=== PATIENT | male | born 1990 | race Two or more races ===

== ENCOUNTER 2017-05-25 01:53 | Emergency (ER) | payer BC ==
[~2017-05-25] VITALS: Ht 182.9 cm; Wt 117.9 kg
--- NOTE | 2017-05-25 02:40 | NUR ---
DR MCNAMARA AT BEDSIDE FOR EVAL.
--- NOTE | 2017-05-25 03:05 | NUR ---
ID DONE BY DR. MCNAMARA. PATIENT TOLERATED WELL. 4X4 DRESSING APPLIED AND SECURED WITH TAPE. Addendum: 05/25/17 at 0306 by [id number] I&D DONE BY .
[2017-05-25 03:25] VITALS: BP 118/78
--- NOTE | 2017-05-25 03:25 | NUR ---
Patient discharged to home in stable conditon. Written and verbal after care instructions given. Patient verbalizes understanding of instructions. INSTRUCTED TO CHANGE DRESSING FREQUENTLY, AND TO WASH WITH SOAP AND WATER AFTER BOWEL MOVEMENT, VERBALIZED UNDERSTANDING.
== END 2017-05-25 03:26 | disposition home or self-care (01) ==
LOC: ER 02:04
DX: L02.31 Cutaneous abscess of buttock (principal)
CPT/HCPCS: A4663; J3490

== ENCOUNTER 2023-11-26 20:55 | Emergency (ER) | payer BC ==
[~2023-11-26] VITALS: Ht 182.9 cm; Wt 113.4 kg
[2023-11-26 21:50] LABS: BASOPHILS # (AUTO) 0.3 K/UL (0.0-0.2); BASOPHILS % (AUTO) 4.6 % (0.0-2.0); DIFFERENTIAL COMMENT 0; EOSINOPHILS # (AUTO) 0.1 K/uL (0.0-0.7); EOSINOPHILS % (AUTO) 1.3 % (0.0-7.0); HEMATOCRIT 41.7 % (36.7-47.1); HEMOGLOBIN 14.3 g/dL (12.5-16.3); LYMPHOCYTES % (AUTO) 14.1 % (20.5-51.5); MEAN CORPUSCULAR HEMOGLOBIN 29.7 uug (23.8-33.4); MEAN CORPUSCULAR HGB CONC 34 g/dL (32.5-36.3); MEAN CORPUSCULAR VOLUME 86.5 fL (73.0-96.2); MONOCYTES # (AUTO) 0.5 K/uL (0.1-1.30); MONOCYTES % (AUTO) 6.9 % (0.0-11.0); NEUTROPHILS # (AUTO) 5.2 K/uL (1.8-8.9); NEUTROPHILS % (AUTO) 73.1 % (38.5-71.5); PLATELET COUNT (AUTO) 213 K/uL (152-348); RED BLOOD CELL COUNT(AUTO) 4.83 MIL/uL (4.06-5.63); RED CELL DISTRIBUTION WIDTH 13.6 % (12.1-16.2); WHITE BLOOD COUNT (AUTO) 7.1 K/uL (3.6-10.2)
[2023-11-26 22:01] LABS: CALCIUM 9.1 mg/dL (8.5-10.1); CREATININE 1.2 mg/dL (0.6-1.3); POTASSIUM 3.9 mmol/L (3.5-5.1)
[2023-11-26] MEDS ORDERED: CEFTRIAXONE /D5W 50ML IVPB **ER PYXIS IV ONE (22:03)
[2023-11-26 22:06] LABS: ALBUMIN 3.9 g/dL (3.4-5.0); BILIRUBIN,TOTAL 1.1 mg/dL (0.2-1.0); TOTAL PROTEIN, SERUM 8.2 g/dL (6.4-8.2)
[2023-11-26] MEDS: CEFTRIAXONE 1 G in IV DEXTROSE 5% 50 ML IV ONE (22:08)
[2023-11-26] MEDS ORDERED: SWABABLE VALVE TRANSFER SET EA MC ONE (22:14)
[2023-11-26] MEDS ORDERED: IV NORMAL SALINE 250 ML IV ONE (22:14)
[2023-11-26] MEDS ORDERED: IOHEXOL 300MG/ML 100 ML INFUS..BTL ONE (22:14)
[2023-11-26 23:05] VITALS: O2SAT 98
[2023-11-27] MEDS ORDERED: CLIN-118 PO (01:29)
== END 2023-11-27 01:37 | disposition left against medical advice (07) ==
LOC: ER 21:22
DX: K61.1 Rectal abscess (principal); Z79.899 Other long term (current) drug therapy; Z60.2 Problems related to living alone
CPT/HCPCS: 99285; 96365; 72193; 80053; 85025; 87040; 36415; 83605; J0696; Q9967; A4606; A4663